=== PATIENT | female | born 1955 | race Caucasian/White ===

== ENCOUNTER 2025-03-05 09:15 | Emergency (ER) | payer MEDICARE, SELFPAY ==
[2025-03-05 09:16] VITALS: BP 222/113; BP 227/113; PULSE 78; PULSE 81; RESP 14; RESP 18; TEMP 36.2; O2SAT 98; BMI 25.7
--- NOTE | 2025-03-05 09:55 | EX.ED.DYSGE1 ---
HPI History of Present Illness Chief Complaint: Hypertension Informant: patient and spouse/S.O. Narrative Narrative: 69-year-old female here for high blood pressure numbers. She is camping locally, she is from the [facility]. Numbers have been 220/100 at home. Since last night she has a mild headache and feels a little jittery but no other symptoms. No recent illness. No [id number] medications or decongestants recently. She takes no antihypertensives at home and is prescribed none. She states on Saturday she was out of follow-up with her electronic prepress operator and her number was 220/100, she was asymptomatic at that time. Her electronic prepress operator thought that was odd and wanted her to come back at a later date for recheck. She had had an abnormal calcium score and so this visit was in follow-up due to a nuclear stress and echocardiogram that she had and everything was great during those, the stress test was negative. During the nuclear stress, when she was at maximal heart rate of around 130, her blood pressure was high over 200, but then when she came back down to resting heart rate her blood pressure was 156/90 he said he let her go. 2 months ago in the office she was 140/80 or so which is what she usually is when she gets an annual checkup. Right now she has a mild headache as well no other symptoms. No vision changes. No off-balance or dizziness. No photophobia. No focal neurologic symptoms, chest discomfort, dyspnea with exertion. [facility] Medical History (Updated 03/05/25 @ 16:[address] Brayan Palm MD) Colitis Home Medications ?Medication ?Instructions ?Recorded ?Last Taken ?Type clonidine HCl 0.1 mg tablet 0.1 mg PO TID PRN SBP > 185 #20 03/05/25 Unknown Rx tabs lisinopril 10 mg tablet 10 mg PO DAILY #30 tabs 03/05/25 Unknown Rx Allergy/AdvReac Type Severity Reaction Status Date / Time procaine AdvReac Other Verified 03/05/25 09:17 Social History Smoking Status: Never smoker ROS ROS ED Constitutional Constitutional ED: Denies chills or fever(s) Eyes Eyes: Denies change in vision or diplopia ENT ENT ED: Denies rhinorrhea or sore throat Cardiovascular Cardiovascular: Denies chest pain or palpitations Respiratory/Chest Respiratory/Chest: Denies cough or dyspnea Gastrointestinal Gastrointestinal: Denies abdominal pain, diarrhea, nausea or vomiting Genitourinary Genitourinary ED: Denies dysuria or hematuria Musculoskeletal Musculoskeletal: Denies back pain or neck pain Integumentary Denies abscess or rash Neurologic Neurologic: Reports headache(s); Denies paresthesias or weakness Psychiatric Psychiatric: Denies anxiety or suicidal thoughts EXAM Physical Exam Const Vital Signs: 03/05/25 09:16 03/05/25 09:16 03/05/25 09:30 Temperature 97.1 F L Temperature Source Temporal Pulse Rate 81 78 Respiratory Rate 14 18 Respiratory Effort Normal Respiratory Pattern Normal Blood Pressure 227/113 H 222/113 H Blood Pressure Mean 151 149 Pulse Ox 98 Oxygen Delivery Method Room Air 03/05/25 11:16 03/05/25 12:02 Temperature 98.1 F Temperature Source Pulse Rate 77 73 Respiratory Rate 16 18 Respiratory Effort Respiratory Pattern Blood Pressure 188/61 H 168/88 H Blood Pressure Mean 103 114 Pulse Ox 98 99 Oxygen Delivery Method Room Air Positive well nourished and well developed Constitutional Narrative: Well-appearing no distress General Appearance ED: well developed and NAD HEENT Reports moist mucous membranes normocephalic and atraumatic Eyes PERRL and EOMs intact bilaterally Neck full ROM and supple Resp normal respiratory effort and clear to auscultation bilaterally Cardio regular rate, regular rhythm and no murmurs GI non-tender and non-distended Auscultation: normoactive bowel sounds Palpation: soft Back/Spine no CVA tenderness General Back: other FROM Extremity normal to inspection General Extremety ED: Negative for edema, pulses abnormal or tenderness General Extremity: Negative for edema or pulses abnormal Neuro oriented x3, CN's II-XII intact bilaterally and no sensory deficits noted Neuro 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 Still has a very mild headache but overall appears well. She is asking for prescription for something to take until she can follow-up which I do not think is unreasonable. Prescribing her some lisinopril in addition to prn clonidine and advised to follow-up as an outpatient. She had just a trace of proteinuria otherwise her urine is unremarkable. Follow-up advised. Lab Data Attestation: I reviewed the patient's lab results. Labs: Laboratory Results - last 24 hr 03/05/25 03/05/25 09:43 11:58 Sodium 139 Potassium 3.7 Chloride 102 Carbon Dioxide 25.9 Anion Gap 11 BUN 15 Creatinine 0.63 L Estim Creat Clear Calc 70.28 Est GFR (MDRD) Non-Af 95 BUN/Creatinine Ratio 24.1 H Glucose 100 H Calcium 9.4 Urine Color Straw Urine Clarity Clear Urine pH 7.0 Ur Specific [place] 1.005 Urine Protein 15 H Urine Glucose (UA) Normal Urine Ketones Negative Urine Occult Blood Negative Urine Nitrite Negative Urine Bilirubin Negative Urine Urobilinogen Normal Ur Leukocyte Esterase Negative Urine RBC 0 SEEN Urine WBC 0 SEEN Ur Squamous Epith Cells 0 SEEN Urine Bacteria 0 SEEN Urine Mucus 0 SEEN Discharge Plan Triage Chief Complaint: Hypertension ED Provider: Brayan Palm Dx/Rx/DC Orders Clinical Impression: Episode of hypertension, Asymptomatic proteinuria Instructions: ED Hypertension New Begin Treatment Prescriptions: New lisinopril 10 mg tablet 10 mg PO DAILY Qty: 30 0RF clonidine HCl 0.1 mg tablet 0.1 mg PO TID PRN (Reason: SBP > 185) Qty: 20 0RF Primary Care Provider: Nik Carolina Referrals: Nik Carolina, DO [Primary Care Provider] - As soon as possible (and/or your electronic prepress operator) Print Language: Marshallese Disposition Disposition: Home, Self Care Discharge Date/Time: 03/05/25 12:12
[2025-03-05 10:48] LABS: Anion Gap 11 (5-15); BUN 15 mg/dL (4-19); BUN/Creat Ratio 24.1 RATIO (10-20); Calcium,Total 9.4 mg/dL (7.6-11.0); Carbon Dioxide 25.9 mmol/L (21.0-32.0); Chloride 102 mmol/L (98-108); Estimated Creatinine Clearance 70.28 ml/min (50-250); Glucose 100 mg/dL (70-99); Potassium 3.7 mmol/L (3.3-5.1)
[2025-03-05 11:16] VITALS: BP 188/61; PULSE 77; RESP 16; O2SAT 98
[2025-03-05 12:02] VITALS: BP 168/88; PULSE 73; RESP 18; TEMP 36.7; O2SAT 99
[2025-03-05 12:07] LABS: Mucous, Urine 0 SEEN /hpf (<or=2+); Red Blood Cells-Urine 0 SEEN /hpf (0-5); Squamous Epithelial Cells - UA 0 SEEN /hpf (5-10)
[2025-03-05 12:09] LABS: Color, Urine Straw (Yellow); Glucose, Dipstick Normal (Normal); Ketone-Dipstick Negative (Negative); Leukocyte Esterase-Dipstick Negative /ul (Negative); Nitrite-Dipstick Negative (Negative); Occult Blood-Urine Negative /ul (Negative); Protein-Dipstick 15 mg/dl (Negative); Specific Gravity, Urine 1.005 (1.002-1.030); Urine Bilirubin Dipstick Negative (Negative)
== END 2025-03-05 12:12 | disposition home or self-care (01) ==
PROVIDERS: Emergency Provider Emergency Medicine; PCP Family Medicine; Visit Provider Emergency Medicine
DX: I10 Essential (primary) hypertension (principal); R80.9 Proteinuria, unspecified
CPT/HCPCS: 80048; 81001; 96374; 99283; A4216